=== PATIENT | male | born 1995 | race Caucasian/White ===

== ENCOUNTER 2018-09-04 22:37 | Emergency (ER) | payer OTHER ==
[2018-09-04 22:55] VITALS: BP 138/91
--- NOTE | 2018-09-05 00:45 | ED ---
Laceration/Wound HPI - HPI Summary HPI Summary: 23-year-old male presents with facial laceration today. He states he got hit playing soccer. immunizations are up-to-date. area is not actively bleeding. No loss consciousness. No nausea or vomiting. Denies any dizziness. No change in vision. - History of Current Complaint Stated Complaint: HEAD LAC Time Seen by Provider: 09/05/18 00:27 Pain Intensity: 1 - Allergy/Home Medications Allergies/Adverse Reactions: Allergies Allergy/AdvReac Type Severity Reaction Status Date / Time Penicillins Allergy Unknown Verified 09/04/18 22:52 Reaction Details PMH/Surg Hx/FS Hx/Imm Hx Endocrine/Hematology History: Denies: Hx Anticoagulant Therapy Respiratory History: Denies: Hx Asthma Infectious Disease History: No Infectious Disease History: Denies: Traveled Outside the [place] in Last 30 Days - Family History Known Family History: Positive: Non-Contributory Review of Systems Negative: Fever Negative: Chest Pain Negative: Shortness Of Breath Positive: Other - facial laceration All Other Systems Reviewed And Are Negative: Yes Physical Exam Triage Information Reviewed: Yes Vital Signs On Initial Exam: Initial Vitals Temp Pulse Resp BP Pulse Ox 99.1 F 89 18 138/91 100 09/04/18 22:52 09/04/18 22:52 09/04/18 22:52 09/04/18 22:52 09/04/18 22:52 Vital Signs Reviewed: Yes Appearance: Positive: Well-Appearing Skin: Positive: Warm, Dry, Other - 3cm by 1/2cm laceration right eyebrow Head/Face: Positive: Normal Head/Face Inspection Eyes: Positive: Normal, EOMI, MARILU, Conjunctiva Clear ENT: Positive: Pharynx normal Respiratory/Lung Sounds: Positive: Clear to Auscultation, Breath Sounds Present Cardiovascular: Positive: Normal, RRR Musculoskeletal: Positive: Normal Neurological: Positive: Sensory/Motor Intact, Alert, Oriented to Person Place, Time, CN Intact II-III Psychiatric: Positive: Normal Procedures - Laceration/Wound Repair facial Location: face - right eye lid Description: Linear Anesthesia: Local, 2.0% Length, Depth and Shape: 2cm, linear Betadine Prep?: No - chlorhexidine Laceration/Wound Explored: clean Closure: Single Layer Suture Type: Vicryl Number of Sutures: 3 Layer Closure?: No Sterile Dressing Applied?: No Diagnostics - Vital Signs Vital Signs Temp Pulse Resp BP Pulse Ox 09/04/18 22:52 99.1 F 89 18 138/91 100 - Laboratory Lab Statement: Any lab studies that have been ordered have been reviewed, and results considered in the medical decision making process. Laceration Repair Course/Dx - Course Course Of Treatment: 23-year-old male presents with facial laceration today. He states he got hit playing soccer. immunizations are up-to-date. area is not actively bleeding. No loss consciousness. No nausea or vomiting. Denies any dizziness. No change in vision. On exam 3cm by 1/2cm near right eye. clean area and placed 3 sutures by cornelius. Told to keep clean dry. Patient understands agrees plan. - Differential Dx Differental Diagnoses: Abrasion, Avulsion, Laceration - Clinical Impression Provider Diagnoses: Facial laceration Discharge - Sign-Out/Discharge Documenting (check all that apply): Patient Departure - Discharge Plan Condition: Good Disposition: HOME Patient Education Materials: Care For Your Stitches (ED) Referrals: No Primary Care Phys,NOPCP [Primary Care Provider] - Additional Instructions: Keep area clean and dry for 24 hours Take Tylenol or ibuprofen for pain every 6 hours Return to ED or primary for suture removal in 5 days Return to ED if develop signs of infection such as fever, spreading redness, or pus formation - Billing Disposition and Condition Condition: GOOD Disposition: Home
== END 2018-09-05 01:11 | disposition home or self-care (01) ==
LOC: ED 22:37
DX: S01.111A Laceration without foreign body of right eyelid and periocular area, initial encounter (principal); W22.8XXA Striking against or struck by other objects, initial encounter; Y93.66 Activity, soccer; Y92.9 Unspecified place or not applicable
CPT/HCPCS: 12011; 99281